=== PATIENT | male | born 1980 | race Caucasian/White ===

== ENCOUNTER 2022-08-15 10:03 | Emergency (ER) | payer MEDICAID, SELFPAY ==
[2022-08-15 10:06] VITALS: BP 155/94; PULSE 105; RESP 18; TEMP 36.6; O2SAT 98
--- NOTE | 2022-08-15 10:27 | ED.VIS.LOWEX ---
HPI History of Present Illness Chief Complaint: Lower Extremity Injury Informant: patient and spouse/S.O. Onset/Context/Timing Onset: Month(s) (1) Context: Gradual Onset Timing: Continuous Quality of Pain: Aching Location: L knee Current Severity: Severe Maximum Severity: Severe Worsened by: moving Relieved by: nothing Associated Symptoms Associated Symptoms: Negative for Parasthesia, Weakness or Loss of Funtion Narrative Narrative: 41-year-old male states he is a diabetic and his left knee has been hurting for the past month. He states he has been to several hospitals that have done x-rays but have not given me any answers. Now he has come to this 1, and does not have any prior records here. He states occasionally, he sees swelling and redness anteriorly on his left knee over the kneecap, that is not the case right now. He has had subjective fevers at night at times, he is concerned everything is infected. He has seen no persistent skin abnormalities. There is no obvious cause for this such as an injury or wound or foreign body. He states the pain radiates up his left thigh into his groin/hip. He states the majority of the issue is at his knee. 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 Patient later states that for the same issue, he has seen orthopedics at [facility], they attempted to get an MRI of his knee, and insurance company denied it. [facility] Medical History (Updated 08/15/22 @ 12:[address] Martínez Healy MD) Diabetes Home Medications diclofenac potassium 50 mg tablet 50 mg PO TID PRN pain #21 tabs 08/15/22 [Rx Last Taken Unknown] Allergy/AdvReac Type Severity Reaction Status Date / Time ceftriaxone [From Rocephin] Allergy Swelling Verified 08/15/22 10:04 Social History Smoking Status: Never smoker ROS ROS ED Constitutional Constitutional ED: Reports fever(s) and subjective; Denies chills Musculoskeletal Musculoskeletal: Reports extremity pain; Denies neck pain Integumentary Reports as per HPI and erythema; Denies Abrasions, rash or wounds Neurologic Neurologic: Denies headache(s), paresthesias or weakness EXAM Physical Exam Const Vital Signs: 08/15/22 10:06 Temperature 97.8 F Temperature Source Temporal Pulse Rate 105 H Respiratory Rate 18 Blood Pressure 155/94 H Blood Pressure Mean 114 Pulse Ox 98 Oxygen Delivery Method Room Air Positive well nourished and well developed General Appearance ED: well developed and NAD Neck full ROM and supple Back/Spine normal ROM and normal to inspection Extremity normal to inspection Extremity Narrative: Left lower extremity is normal on inspection. There is no knee effusion or swelling anywhere else and no skin abnormalities/findings including erythema. No palpable cords. No calf tenderness. He has pain with ranging the knee but he is able to range it fully, and I can range it passively fully without any significant difficulty or limitation. When I torque on his ACL and PCL he complains of pain but there is no laxity. Lateral collateral ligaments with knee fully extended are without pain on stressing or laxity. No left inguinal lymphadenopathy. Painless full passive range of motion of the left hip. No bony tenderness. Intact pulse left dorsalis pedis, foot is warm with brisk cap refill. Neuro oriented x3, no focal motor deficits and no sensory deficits noted Sensorium / Orientation: alert Psych mental status grossly normal and thought process normal Mood & Affect: anxious Skin no wounds Skin Narrative: Normal appearance of left lower extremity without any skin lesions or discoloration or excessive warmth. There is a nontender erythematous rash with some maculopapular features on the lower part of his abdomen that he states is chronic and does not bother him. MDM MDM MDM Narrative Medical decision making narrative: Since the patient has had x-rays in the past although they are not here, I skipped those I do not think he needs emergency repeat x-rays/imaging since he did not injure it. I did basic labs, ESR and CRP are normal and he has no white blood count, consistent with the absence of acute septic arthritis. I discussed the pros and cons of an arthrocentesis and we did that as well, see the procedure note. On reevaluation, his knee felt better and he is sitting comfortably with his left knee bent. He also received some medications from us for the pain. The electrical engineering technician in the labs all no crystals. Furthermore his white blood count in the synovial fluid is only 161 white blood cells. That along with his clinical exam and the appearance of the fluid which appear to be excess amount of normal-appearing synovial fluid, as well as normal ESR and CRP argue strongly against acute septic arthritis. Culture is sent and pending. No organisms seen on Gram stain. At this time this is likely something inflammatory. Differential includes osteoarthritis, meniscus tear, ligament injury, other internal derangement, as well as rheumatologic issues. Incidentally his calcium level is very low on his labs. I do not have any old labs to compare this to. I discussed this with him he is never been told this before. I advised taking Tums daily and following up with his primary care doctor, differential here includes parathyroid issues, renal issues, other metabolic problems. I discussed that with him and he is comfortable with the plan of this in addition to prescription for diclofenac and an Jamie wrap for his knee. Given multiple orthopedic follow-up contacts. Lab Data Attestation: I reviewed the patient's lab results. Labs: Laboratory Results - last 24 hr 08/15/22 08/15/22 08/15/22 10:45 10:45 10:45 WBC Cancelled Corrected WBC Cancelled RBC Cancelled Hgb Cancelled Hct Cancelled MCV Cancelled MCH Cancelled MCHC Cancelled RDW Std Deviation Cancelled RDW Coeff of Elly Cancelled Plt Count Cancelled MPV Cancelled Immature Gran % (Auto) Cancelled Neut % (Auto) Cancelled Lymph % (Auto) Cancelled Wayne % (Auto) Cancelled Eos % (Auto) Cancelled Baso % (Auto) Cancelled Absolute Neuts (auto) Cancelled Absolute Lymphs (auto) Cancelled Total Counted Cancelled Neutrophils % (Manual) Cancelled Band Neutrophils % Cancelled Lymphocytes % (Manual) Cancelled Monocytes % (Manual) Cancelled Eosinophils % (Manual) Cancelled Basophils % (Manual) Cancelled Metamyelocytes % Cancelled Myelocytes % Cancelled Promyelocytes % Cancelled Blast Cells % Cancelled Plasma Cell % (Manual) Cancelled Other Cells % Cancelled Nucleated RBC % Cancelled Nucleated RBCs/100 WBC Cancelled Differential Comment Cancelled Diff Path Review Cancelled Hypersegmented Neuts Cancelled Atypical Lymphocytes Cancelled Reactive Lymphocytes Cancelled Smudge Cells Cancelled Toxic Granulation Cancelled Toxic Vacuolation Cancelled Dohle Bodies Cancelled Gabby Rods Cancelled Platelet Estimate Cancelled Plt Morphology Comment Cancelled RBC Morphology Cancelled Polychromasia Cancelled Hypochromasia Cancelled Poikilocytosis Cancelled Basophilic Stippling Cancelled Anisocytosis Cancelled Microcytosis Cancelled Macrocytosis Cancelled Spherocytes Cancelled Sickle Cells Cancelled Target Cells Cancelled Tear Drop Cells Cancelled Ovalocytes Cancelled Stomatocytes Cancelled [place] Bodies Cancelled Wall Cells Cancelled Bite Cells Cancelled Crenated Cell Cancelled Acanthocytes (Spur) Cancelled Rouleaux Cancelled Schistocytes Cancelled ESR Cancelled Sodium 144 Potassium 3.4 L Chloride 117 H Carbon Dioxide 20.0 L Anion Gap 7 BUN 19 H Creatinine 0.60 L Estim Creat Clear Calc 172.56 Est GFR (MDRD) Af Amer 191 Est GFR (MDRD) Non-Af 158 BUN/Creatinine Ratio 31.8 H Glucose 108 H Calcium 6.5 L* Total Creatine Kinase 111 C-React Prot Ext Range < 2.90 Fluid Source Fluid Color Fluid Appearance Fluid WBC Fluid RBC Fluid Tot Cell Count Fld Polynuclear WBCs # Fld Polynuclear WBCs % Fluid Mononuclear WBCs Fld Mononuclear WBCs % Fluid Neutrophils Fluid Lymphocytes Fluid Monocytes Fluid Plasma Cells Fluid Macrophages Fld Mesothelial Cells Fluid Other Cells Fluid Crystals Fluid Crystal Source Fl Pathologist Comment Fluid Comment 2 Synovial Source Synovial Color Synovial Appearance Synovial Viscosity Synovial WBC Synovial RBC Synovial Tot Cell Ct Synov Polynuclear WBCs Synov Mononuclear WBCs Synovial Polynuclear % Synovial Mononuclear % Synovial Path Comment 08/15/22 08/15/22 11:05 11:28 WBC 5.5 Corrected WBC RBC 3.63 L Hgb 11.1 L Hct 33.1 L MCV 91.2 MCH 30.6 MCHC 33.5 RDW Std Deviation 45.6 H RDW Coeff of Elly 13.7 Plt Count 301 MPV 9.5 Immature Gran % (Auto) 0.500 Neut % (Auto) 49.1 Lymph % (Auto) 38.9 Wayne % (Auto) 8.6 Eos % (Auto) 2.2 Baso % (Auto) 0.7 Absolute Neuts (auto) 2.7 Absolute Lymphs (auto) 2.13 Total Counted Neutrophils % (Manual) Band Neutrophils % Lymphocytes % (Manual) Monocytes % (Manual) Eosinophils % (Manual) Basophils % (Manual) Metamyelocytes % Myelocytes % Promyelocytes % Blast Cells % Plasma Cell % (Manual) Other Cells % Nucleated RBC % 0 Nucleated RBCs/100 WBC Differential Comment Diff Path Review Hypersegmented Neuts Atypical Lymphocytes Reactive Lymphocytes Smudge Cells Toxic Granulation Toxic Vacuolation Dohle Bodies Gabby Rods Platelet Estimate Plt Morphology Comment RBC Morphology Polychromasia Hypochromasia Poikilocytosis Basophilic Stippling Anisocytosis Microcytosis Macrocytosis Spherocytes Sickle Cells Target Cells Tear Drop Cells Ovalocytes Stomatocytes [place] Bodies Wall Cells Bite Cells Crenated Cell Acanthocytes (Spur) Rouleaux Schistocytes ESR 5 Sodium Potassium Chloride Carbon Dioxide Anion Gap BUN Creatinine Estim Creat Clear Calc Est GFR (MDRD) Af Amer Est GFR (MDRD) Non-Af BUN/Creatinine Ratio Glucose Calcium Total Creatine Kinase C-React Prot Ext Range Fluid Source Cancelled Fluid Color Cancelled Fluid Appearance Cancelled Fluid WBC Cancelled Fluid RBC Cancelled Fluid Tot Cell Count Cancelled Fld Polynuclear WBCs # Cancelled Fld Polynuclear WBCs % Cancelled Fluid Mononuclear WBCs Cancelled Fld Mononuclear WBCs % Cancelled Fluid Neutrophils Cancelled Fluid Lymphocytes Cancelled Fluid Monocytes Cancelled Fluid Plasma Cells Cancelled Fluid Macrophages Cancelled Fld Mesothelial Cells Cancelled Fluid Other Cells Cancelled Fluid Crystals NO CRYSTALS SEEN Fluid Crystal Source SYNOVIAL Fl Pathologist Comment Cancelled Fluid Comment 2 Cancelled Synovial Source KNEE Synovial Color Yellow Synovial Appearance Clear Synovial Viscosity Viscous Synovial WBC 0.1610 H Synovial RBC 126 H Synovial Tot Cell Ct 0.1960 H Synov Polynuclear WBCs 0.020 Synov Mononuclear WBCs 0.141 Synovial Polynuclear % 12.4 Synovial Mononuclear % 87.[address] Comment May follow Procedures Other Procedures Procedure(s): Left knee arthrocentesis: After informed consent from the patient after discussing pros and cons, the area was initially prepped with isopropanol, locally anesthetized with 1 cc of plain 1% lidocaine medial aspect, and then prepped again with Betadine. A 21-gauge needle was used to enter the synovial capsule, and a total of 8 cc of yellow transparent nonbloody synovial fluid with a positive string sign was removed without difficulty. The needle was removed, a bandage was placed, there were no complications and the patient tolerated well. Discharge Plan Triage Chief Complaint: Lower Extremity Injury ED Provider: Martínez Healy Dx/Rx/DC Orders Clinical Impression: Knee pain, left, Hypocalcemia Instructions: ED Knee Pain of Uncertain Cause, ED Hypocalcemia (Adult) Prescriptions: New diclofenac potassium 50 mg tablet 50 mg PO TID PRN (Reason: pain) Qty: 21 0RF Primary Care Provider: Care Physician,No Primary Referrals: Martínez Whittington MD [Non-Staff] - 3-5 Days (or your other orthopaedic if different doctor) Blaine Solis MD [Med Staff - Active Staff] - (ortho option here in [place]) Doctor,Your [Non-Staff] - As soon as possible (regarding low calcium levels and possible further testing) Activity Restrictions/Additional Instructions: For now regarding your low calcium, take Tums 2 tablets twice daily. Any kind will do. Disposition Disposition: Home, Self Care
[2022-08-15] MEDS: HYDROcodone Bitartrate/Apap 5/325 Tablet PO (10:49)
[2022-08-15] MEDS: Ketorolac 15 MG/ML Vial IV (10:49)
[2022-08-15 11:12] LABS: Anion Gap 7 (5-15); BUN 19 mg/dL (7-18); BUN/Creat Ratio 31.8 RATIO (10-20); CRP < 2.90 mg/L (0.0-3.0); Calcium,Total 6.5 mg/dL (8.5-10.1); Chloride 117 mmol/L (98-107); EST Glomerular Filtration Rate 158 mL/min (>60); Est Glom Filt Rate - Afr Amer 191 mL/min (>60); Estimated Creatinine Clearance 172.56 ml/min; Glucose 108 mg/dL (74-106); Potassium 3.4 mmol/L (3.5-5.1); Sodium Level 144 mmol/L (136-145)
[2022-08-15 11:21] LABS: CPK Total, Creatine Kinase 111 U/L (39-308)
[2022-08-15 11:39] LABS: Erythrocyte Sedimentation Rate 5 mm/hr (0-20)
[2022-08-15 11:43] LABS: Synovial Fld Mononuclear WBC # 0.141 10^3/ul; Synovial Fld Mononuclear WBC % 87.6 %; Synovial Fld Polynuclear WBC % 12.4 %
[2022-08-15 11:52] LABS: Absolute Lymphocyte Count 2.13 X10^3/uL (0.83-4.51); Absolute Neutrophil Count 2.7 X10^3/uL (2.0-7.7); Basophil# 0.04 X10^3/uL; Basophil% 0.7 % (0-1); Eosinophil# 0.12 X10^3/uL; Eosinophils% 2.2 % (0-5); Hematocrit 33.1 % (40-54); Hemoglobin 11.1 g/dL (13.0-16.5); Lymphocyte # 2.13 X10^3/ul (0.83-4.51); Lymphocyte % 38.9 % (19-41); Mean Corp Hgb Conc 33.5 g/dL (32-36); Mean Corpuscular Hgb 30.6 pg (27.0-32.0); Mean Corpuscular Volume 91.2 fL (80-94); Mean Platelet Vol. 9.5 fl (6.2-12.0); Monocyte# 0.47 X10^3/uL; Monocyte% 8.6 % (0-10); NRBC Flagged by Analyzer 0 % (0-5); Neutrophil # 2.69 X10^3/uL (2.7-7.7); Neutrophil % 49.1 % (47-70); Platelet Count 301 K/mm3 (150-450); RBC Distribution Width CV 13.7 % (11.6-14.6); RBC Distribution Width SD 45.6 fl (35.1-43.9); Red Blood Count 3.63 M/mm3 (4.6-6.2); White Blood Count 5.5 K/mm3 (4.4-11.0)
[2022-08-15 12:03] VITALS: PULSE 76; RESP 16; TEMP 37.2; O2SAT 97
[2022-08-15 12:33] LABS: AUTO B FLUID DILUENT BKGD CT WBC <0.1 RBC <0.01 (W<.1,R<.01); Source / Synovial Fluid KNEE; Source- Body Fluid SYNOVIAL; Viscosity / Synovial Fluid Viscous (HIGH)
[2022-08-15 12:34] LABS: Appearance /Synovial Fluid Clear (CLEAR); Color / Synovial Fluid Yellow (Pale Yellow)
[2022-08-15 12:35] LABS: RBC /Synovial Fluid 126 /mm3 (0)
[2022-08-15 12:43] LABS: CRYSTALS, BODY FLUID NO CRYSTALS SEEN
[2022-08-15 12:50] LABS: Lymph 34 %; Monocyte /Synovial Fluid 58 %; Neutrophil 8 % (0-25)
[2022-08-18 09:26] LABS: Pathologist Comment Reviewed
== END 2022-08-15 13:04 | disposition home or self-care (01) ==
PROVIDERS: Emergency Provider Emergency Medicine; Visit Provider Emergency Medicine
DX: M25.562 Pain in left knee (principal); E11.9 Type 2 diabetes mellitus without complications; E83.51 Hypocalcemia; R21 Rash and other nonspecific skin eruption
CPT/HCPCS: 20610; J3490; 80048; 82550; 85025; 85652; 86140; 87070; 87075; 87205; 89050; 89051; 89060; 96374; 99284; A4216